=== PATIENT | male | born 1990 | race Caucasian/White ===

== ENCOUNTER → 2017-06-14 | Outpatient (CLI) | payer OTHER | LOC: MC.RAD 08:53 | DX: N62 Hypertrophy of breast (principal) ==

== ENCOUNTER 2017-07-16 06:32 | Day surgery (SDC) | payer OTHER ==
[~2017-07-16] VITALS: Ht 175.3 cm; Wt 97.3 kg
[2017-07-16 06:52] VITALS: BP 123/47; PULSE 53; TEMP 98
[2017-07-16] MEDS ORDERED: TYLENOL 325MG325 MG PO (06:52)
[2017-07-16 09:20] VITALS: BP 109/43; PULSE 71; TEMP 97.9
[2017-07-16] MEDS ORDERED: PERCOCET 325 MG1 TA2 PO (09:25)
[2017-07-16] MEDS ORDERED: MOTRIN 600600 MG/TAB PO (09:26)
[2017-07-16] MEDS ORDERED: COLACE 100100 MG/CAP PO (09:26)
[2017-07-16 09:35] VITALS: BP 116/46; PULSE 63
[2017-07-16 09:50] VITALS: BP 112/58; PULSE 50
[2017-07-16 10:00] VITALS: BP 112/51; PULSE 74
== END 2017-07-16 10:15 | disposition home or self-care (01) ==
LOC: SDCO 06:32
DX: N62 Hypertrophy of breast (principal); N63.21 Unspecified lump in the left breast, upper outer quadrant
CPT/HCPCS: J0690; J1100; J1885; J2250; J2405; J2704; J3010; J7120

== ENCOUNTER → 2017-12-19 | Outpatient (CLI) | payer OTHER ==
[~2017-12-19] MED LIST: COLACE 100100 MG/CAP PO; MOTRIN 600600 MG/TAB PO; PERCOCET 325 MG1 TA2 PO; TYLENOL 325MG325 MG PO
== END ==
LOC: COL.RAD 14:14
DX: M19.011 Primary osteoarthritis, right shoulder (principal); S43.401A Unspecified sprain of right shoulder joint, initial encounter
CPT/HCPCS: A9585; Q9967

== ENCOUNTER 2018-02-05 05:28 | Emergency (ER) | payer OTHER ==
[~2018-02-05] VITALS: Ht 175.3 cm; Wt 95.5 kg
[2018-02-05 05:39] VITALS: BP 129/71; TEMP 98.8
[2018-02-05 07:33] VITALS: PULSE 94
== END 2018-02-05 07:33 | disposition home or self-care (01) ==
LOC: COL.ER 05:28
DX: J67.0 Farmer's lung (principal)
CPT/HCPCS: J1100

== ENCOUNTER → 2018-10-21 | Outpatient (CLI) | payer OTHER | LOC: COL.RAD 12:46 | DX: M25.511 Pain in right shoulder (principal); Z98.890 Other specified postprocedural states | CPT/HCPCS: A9585; Q9967 ==

== ENCOUNTER 2019-05-10 10:49 | Emergency (ER) | payer OTHER ==
[~2019-05-10] VITALS: Ht 175.3 cm; Wt 100.0 kg
[2019-05-10 11:17] VITALS: BP 131/76; TEMP 98.6
[2019-05-10] MEDS ORDERED: NEURONTIN300 MG/CAP PO (14:42)
[2019-05-10] MEDS ORDERED: LIDODERM 5% PATC1 EA TP (14:43)
[2019-05-10] MEDS ORDERED: NORCO 325 MG-51 TAB PO (14:43)
[2019-05-10 15:00] VITALS: PULSE 71
== END 2019-05-10 15:00 | disposition home or self-care (01) ==
LOC: COL.ER 10:49
DX: S16.1XXA Strain of muscle, fascia and tendon at neck level, initial encounter (principal); S29.012A Strain of muscle and tendon of back wall of thorax, initial encounter; M54.14 Radiculopathy, thoracic region; X50.0XXA Overexertion from strenuous movement or load, initial encounter
CPT/HCPCS: J1170; J1885

== ENCOUNTER → 2019-06-24 | Outpatient (CLI) | payer OTHER ==
[~2019-06-24] MED LIST changes: +LIDODERM 5% PATC1 EA TP; +NEURONTIN300 MG/CAP PO; +NORCO 325 MG-51 TAB PO
== END ==
LOC: MHCPAIN 09:16
DX: M79.622 Pain in left upper arm (principal); M47.22 Other spondylosis with radiculopathy, cervical region; G89.29 Other chronic pain; F17.210 Nicotine dependence, cigarettes, uncomplicated
CPT/HCPCS: G0463

== ENCOUNTER → 2019-08-07 | Outpatient (CLI) | payer OTHER | LOC: COL.RAD 09:58 | DX: M54.2 Cervicalgia (principal); R29.898 Other symptoms and signs involving the musculoskeletal system ==

== ENCOUNTER → 2019-10-19 | Outpatient (CLI) | payer OTHER | LOC: COL.RAD 11:27 | DX: M50.10 Cervical disc disorder with radiculopathy, unspecified cervical region (principal); Z98.1 Arthrodesis status; M48.02 Spinal stenosis, cervical region ==

== ENCOUNTER → 2021-01-09 | Outpatient (CLI) | payer OTHER ==
[~2021-01-09] MED LIST changes: +MEDROL 4MG DOSPA4 MG PO
== END ==
LOC: MHCPAIN 10:42
DX: M47.812 Spondylosis without myelopathy or radiculopathy, cervical region (principal); M54.12 Radiculopathy, cervical region; G89.29 Other chronic pain
CPT/HCPCS: G0463

== ENCOUNTER → 2021-01-12 | Outpatient (CLI) | payer OTHER | LOC: MHCPAIN 09:20 | DX: M47.812 Spondylosis without myelopathy or radiculopathy, cervical region (principal); M96.1 Postlaminectomy syndrome, not elsewhere classified; M54.2 Cervicalgia | CPT/HCPCS: J1100; Q9967 ==

== ENCOUNTER → 2021-02-01 | Outpatient (CLI) | payer OTHER | LOC: MHCPAIN 12:21 | DX: M47.812 Spondylosis without myelopathy or radiculopathy, cervical region (principal); M54.12 Radiculopathy, cervical region | CPT/HCPCS: G0463 ==

== ENCOUNTER 2021-02-04 10:02 | Emergency (ER) | payer OTHER ==
[~2021-02-04] VITALS: Ht 175.3 cm; Wt 97.7 kg
[~2021-02-04 10:02] MED LIST changes: -MEDROL 4MG DOSPA4 MG PO
[2021-02-04 10:29] VITALS: BP 139/86; PULSE 66; TEMP 97.8
[2021-02-04] MEDS ORDERED: MEDROL 4MG DOSPA4 MG PO (10:49)
[2021-02-04] MEDS ORDERED: PERCOCET 325 MG1 TA2 PO (10:49)
== END 2021-02-04 11:11 | disposition home or self-care (01) ==
LOC: COL.ER 10:02
DX: M54.12 Radiculopathy, cervical region (principal); Z87.39 Personal history of other diseases of the musculoskeletal system and connective tissue; Z98.1 Arthrodesis status; Z98.890 Other specified postprocedural states
CPT/HCPCS: J1885; J2360

== ENCOUNTER 2021-07-30 09:38 | Emergency (ER) | payer OTHER ==
[~2021-07-30] VITALS: Ht 175.3 cm; Wt 100.0 kg
[~2021-07-30 09:38] MED LIST changes: +MEDROL 4MG DOSPA4 MG PO
[2021-07-30 09:48] VITALS: TEMP 98.1
[2021-07-30 11:56] VITALS: PULSE 61
== END 2021-07-30 11:57 | disposition home or self-care (01) ==
LOC: COL.ER 09:38
DX: M54.50 Low back pain, unspecified (principal); Z98.890 Other specified postprocedural states; Z87.39 Personal history of other diseases of the musculoskeletal system and connective tissue; X50.1XXA Overexertion from prolonged static or awkward postures, initial encounter; Y93.64 Activity, baseball